=== PATIENT | female | born 1970 | race Caucasian/White ===

== ENCOUNTER 2025-04-29 04:37 | Emergency (ER) | payer BC, SELFPAY ==
--- OUTSIDE RECORDS SUMMARY | 2020-06-02 04:15 | XMS_ITS | Continuity of Care Document ---
Author Organization [facility] Address [address] [place] [address] Phone Care Team Providers Care Classroom Paraprofessional Name Role Phone Pasha CARPIO Raudel Unavailable Unavailable Procedures Procedure Date Moderna COVID Vaccine Admin Dose 2 Moderna COVID-19 Vaccine Moderna COVID Vaccine Admin Dose 2 Moderna COVID-19 Vaccine Moderna COVID Vaccine Admin Dose 1 Moderna COVID-19 Vaccine Advance Directives Directive Yes / No Effective Date File Name No Information Encounters Encounter Description Practice Location Reason(s) For Visit Diagnoses Date Provider Providers Copied on Encounter [facility], [address] [place], [place], [id number], tel:[phone] COVID ECHD No Information Dinorahfauzia Raudel. [address] [place], [place], [id number], . tel:[phone] [facility], [address] [place], [place], [id number], tel:[phone] COVID ECHD No Information Visci DO Starks. [address] [place], [place], [id number], [place]. tel:[phone] [facility], [address] [place] [address], [id number], tel:[phone] COVID ECHD Encounter for screening for other viral diseases Pasha HUSTON Raudel. [address] [place], [place], [id number], [place]. tel:[phone] Family History Family Member Type Diagnosis Age At Onset No Information Immunizations Vaccine Date Status Comments Moderna COVID administered Source: New Im munization Record Moderna COVID administered Source: New Im munization Record Payers Payer name Insurance type Covered alliance party ID Authoriza tiani(s) [place] [employer] [id number] [employer] [employer] [id number] [place] [employer] [id number] Social History Type Description Quantity Date Captured Comments Alcohol Use Details Unknown Caffeine Use Details Unknown Tobacco Use Status No Information Smoking Status No Information Sex Female Sexual Orientation Straight or heterosexual Gender Identity Female Chief Complaint And Reason For Visit No Information Reason For Referral Reason For Referral No Information History Of Present Illness Encounter Date Complaint History Of Prese nt Illness No Information Functional Status Date Functional Assessmen t No Information Instructions Date Instruction Additional Infor mation No Information Assessments Type Assessment Date No Information Patient Care Teams Name Effective Dates (start - stop) Status Members No Information
[2025-04-29 04:42] VITALS: BP 157/91; PULSE 107; TEMP 37.4; O2SAT 97; BMI 29.6
--- NOTE | 2025-04-29 05:07 | ED_ITS ---
HPI - URI/Sore Throat General Chief Complaint: Upper Respiratory Infection Stated Complaint: FEVER, HEADACHE Time Seen by Provider: 04/29/25 04:51 Source: patient Limitations: no limitations History of Present Illness HPI Narrative: This 54-year-old female presents for evaluation of 3 days of cough, headache, fevers, chills, body aches, nasal congestion. Symptoms started 3 days ago with a sore throat then a dry cough and a headache. She has taken ibuprofen and a Fioricet but does not have any relief of her headache. She does not have any neck pain or stiffness. She does not have any GI symptoms. She denies any chest pain or shortness of breath. Related Data Allergies Allergy/AdvReac Type Severity Reaction Status Date / Time latex Allergy Intermediate Hives Verified 04/29/25 04:44 Review of Systems ROS Status of ROS 10 or more systems reviewed and unremark able except as noted in history and below PFSH PFSH Social History Little interest or pleasure in doing things: not at all Feeling down, depressed, or hopeless: not at all Exam Narrative Exam Narrative: Vital signs and Nursing Notes reviewed: She has a low-grade fever, is tachycardic with a pulse of 107, blood pressure is mildly elevated 157/91, she is not hypoxic with pulse ox 97% on room air General: Awake, alert, oriented, nontoxic but mildly ill-appearing adult female, no respiratory distress HEENT: Normocephalic atraumatic, mucous membranes are moist and pink, eyes are clear, normal conjunctiva, vision is grossly intact, posterior pharynx is normal in appearance. Neck: Supple, no meningeal signs Chest: Lungs are clear to auscultation with good air entry, there is no wheezing rhonchi or rales appreciated no accessory muscle use, patient is speaking in complete sentences-no chest wall tenderness to palpation CVS: Regular rate and rhythm S1-S2 tachycardic triage with a pulse of 107, no murmurs rubs or gallops, pulses are brisk and equal bilaterally Extremities: Moving all extremities, no lower extremity tenderness or swelling noted, negative Homans' sign, pulses are brisk and equal bilaterally Skin: Normal in appearance without rash,pallor, petechiae or purpura Neuro: No focal deficits Constitutional Vital Signs, click to edit/add: Last Vital Signs Temp 99.4 F 04/29/25 04:42 Pulse 107 H 04/29/25 04:42 Resp 18 04/29/25 04:42 BP 157/91 H 04/29/25 04:42 Pulse Ox 97 04/29/25 04:42 O2 Del Method Room Air 04/29/25 04:42 Course Vital Signs Vital signs: Vital Signs Temperature 99.4 F 04/29/25 04:42 Pulse Rate 107 H 04/29/25 04:42 Respiratory Rate 18 04/29/25 04:42 Blood Pressure 157/91 H 04/29/25 04:42 Pulse Oximetry 97 04/29/25 04:42 Oxygen Delivery Method Room Air 04/29/25 04:42 Temperature 99.4 F 04/29/25 04:42 Pulse Rate 107 H 04/29/25 04:42 Respiratory Rate 18 04/29/25 04:42 Blood Pressure 157/91 H 04/29/25 04:42 Pulse Oximetry 97 04/29/25 04:42 Oxygen Delivery Method Room Air 04/29/25 04:42 MDM - URI/Sore Throat MDM Narrative Medical decision making narrative: This 54-year-old female, non-smoker presents for evaluation of 3 days of sore throat, cough, congestion, headache and bodyaches. She states the headache is the worst part. She took ibuprofen and a Fioricet before coming to the em ergency department. She is not having any chest pain or shortness of breath. She does have a low-grade fever and is mildly tachycardic. Her lungs are clear, posterior pharynx is normal. She was given a dose of [place] and Zofran in the emergency department for her headache. She is positive for influenza A, negative for influenza B and COVID-19. She will be discharged home with 2 [place] to take as needed over the course of the next 24 hours and a note for work. Lab Data Attestation: I reviewed the patient's lab results. Labs: Lab Results 04/29/25 Range/Units 04:45 Influenza Type A Ag Positive A Influenza Type B Ag Negative SARS-CoV-2 Ag (CV2AG) Negative (NEGATIVE) Discharge Plan Discharge Chief Complaint: Upper Respiratory Infection Clinical Impression: Influenza Patient Disposition: Home, Self-Care Time of Disposition Decision: 05:22 Condition: Good Print Language: Albanian Instructions: Influenza (ED) Referrals: Malik Capellan MD [Primary Care Provider, Cardiology] - 1 week
[2025-04-29] MEDS: HYDROCODONE/ACET 5-325 MG TABLET 1 TAB PO (05:08)
[2025-04-29 05:09] LABS: SARS-CoV-2 Ag NEGATIVE (NEGATIVE)
[2025-04-29] MEDS: ONDANSETRON 4 MG RAPDIS TABLET SL (05:09)
[2025-04-29] MEDS: HYDROCODONE/ACET 5-325 MG TABLET 2 TAB PO (05:35)
--- OUTSIDE RECORDS SUMMARY | 2025-04-29 05:40 | XMS_ITS | Clinical Summary ---
Author Organization [facility] Address [address] [place] [address] Care Team Providers Care Malt House Supervisor Name Role Phone Octavio Bang MD Unavailable [phone] Octavio Bang MD Primary Care Provider [phone] Allergies Active AllergyReactionsCriticalityNoted DateCommentsFish Protein-Containing Drug Hqhaelaz51/09/2023 Other Reaction(s): hives Latex12/13/2022 Other Reaction(s): Hives Medications MedicationSigDispense QuantityRefillsLast FilledStart DateEnd DateStatus aspirin 81 MG EC tablet Take 81 mg by mouth in the morning.08/15/2022ctive atorvastatin (Lipitor) 80 MG tablet Take 80 mg by mouth in the morning.08/14/2022ctive dilTIAZem CD (Cardizem CD) 120 MG 24 hr capsule Take 120 mg by mouth in the morning.12/10/2022ctive lisinopril 2.5 MG tablet Take 2.5 mg by mouth in the morning.12/08/2022ctive nitroglycerin (Nitrostat) 0.[address] 0.4 mg under the tongue every 5 (five) minutes if needed.08/30/2022ctive DULoxetine (Cymbalta) [address] capsule Indications:Adjustment disorder with anxious mood,AnxietyNote dose adjustment and take only 1 (30 mg ) capsule daily in AM. 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 zoooizpd17/09/2023H/O right coronary artery stent znuvwxqxx52/09/2023Internal derangement of right knee12/13/2022Non morbid obesity due to excess calories 12/13/2022Non-seasonal allergic cpxcmezz21/09/2023rimary osteoarthritis of both knees12/13/2022Thyroid emtnzd9012/13/2022 Immunizations ImmunizationAdministration DatesNext DueInfluenza, High Dose Seasonal, Preservative Free02/28/2017Influenza, injectable, quadrivalent, preservative free03/07/2019,02/28/2017,03/21/2016 Family History Medical HistoryRelationNameCommentsMental illnessDaughterQuinn springCancer FatherRon snyderDiabetesFatherRon snyderHypertensionFatherRon snyderProstate cancerFatherRon snyderArthritisMotherJean snyderAsthmaMotherJean snyderDementia MotherJean snyderHeart diseaseMotherJean snyderPacemakerMotherJean snyderStroke SiblingAccidental deathSister 1Leigh annStrokeSister 2Patty phillipsMental illnessSon 1Grant springBreast cancerNeg HxColon cancerNeg HxOvarian cancerNeg HxRelationNameStatusCommentsDaughterQuinn springAliveFatherRon snyderDeceased Maternal GrandfatherDeceasedMaternal GrandmotherDeceasedMotherJean chavarria DeceasedPaternal GrandfatherDeceasedPaternal GrandmotherDeceasedSiblingSister 1 Norma annSister 2Patty phillipsSon 1Grant springAliveSon 2Alive Social History Tobacco UseTypesPacks/DayYears UsedDateSmoking Tobacco: NeverSmokeless Tobacco: Never Tobacco Cessation:Counseling Given: Yes Alcohol UseStandard Drinks/WeekCommentsYes1 (1 standard drink = 0.6 oz pure alcohol)Caffeine intake: 1-2 cups per day coffee, soda/[id number] Health Literacy AnswerDate RecordedHow often do you need to have someone help you when you read instructions, pamphlets, or other written material from your doctor or pharmacy? Never06/18/2024Humiliation, Afraid, Rape, and Kick questionnaireAnswerDate RecordedWithin the last year, have you been afraid of your partner or ex-partner?No12/21/2022Within the last year, have you been humiliated or emotionally abused in other ways by your partner or ex-partner?No12/21/2022 Within the last year, have you been kicked, hit, slapped, or otherwise physically hurt by your partner or ex-partner?No12/21/2022Within the last year, have you been raped or forced to have any kind of sexual activity by your part ner or ex-partner?No12/21/2022Social Connection and Isolation PanelAnswerDate RecordedIn a typical week, how many times do you talk on the phone with family, friends, or neighbors?More than three times a week06/18/2024How often do you get together with friends or relatives?Twice a week06/18/2024How often do you attend christian or anglican services?Patient sezjsryy12/12/2025Do you belong to any clubs or organizations such as christian groups, unions, fraternal or athletic tommy ups, or school groups?Patient uixfcsqj94/12/2025How often do you attend meetings of the clubs or organizations you belong to?Patient ndkrezaq42/12/2025re you , , , , never , or living with a partner? Ujsbwim5106/18/2024UDIT-CAnswerDate RecordedQ1: How often do you have a drink containing alcohol?2-4 times a month06/18/2024Q2: How many drinks containing alcohol do you have on a typical day when you are drinking?1 or Q3: How often do you have six or more drinks on one occasion?Never06/18/2024Overall Financial Resource Strain (CARDIA)AnswerDate RecordedHow hard is it for you to pay for the very basics like food, housing, medical care, and heating?Not hard at all06/18/2024PHQ-2AnswerDate RecordedPatient Health Questionnaire-2 Score0 12/22/2024[facility] [place] [facility] - Occupational Stress QuestionnaireAnswerDate RecordedDo you feel stress - tense, restless, nervous, or anxious, or unable to sleep at night because yourmind is troubled all the time - these days?To some fwmwwo0106/18/2024Exercise Vital SignAnswerDate Recorded On average, how many days per week do you engage in moderate to strenuous exercise (like a brisk walk)?3 days06/18/2024On average, how many minutes do you engage in exercise at this level?20 min06/18/2024Hunger Vital SignAnswerDate RecordedWithin the past 12 months, you worried that your food would run out before you got the money to buymore.Never true06/18/2024Within the past 12 months, the food you bought just didn't last and you didn't have money to get more.Never true06/18/2024PRAPARE - TransportationAnswerDate RecordedIn the past 12 months, has lack of transportation kept you from medical appointments or from getting medications?No06/18/2024In the past 12 months, has lack of transportation kept you from meetings, work, or from getting things needed for daily living?No06/18/2024Housing Stability Vital SignAnswerDate RecordedIn the last 12 months, was there a time when you were not able to pay the mortgage or rent on time?No12/21/2022In the last 12 months, how many places have you lived?1 12/21/2022In the last 12 months, was there a time when you did not have a steady place to sleep or slept in ashelter (including now)?12/21/2022Housing Stability Vital SignAnswerDate RecordedIn the last 12 months, was there a time when you were not able to pay the mortgage or rent on time?No06/18/2024In the past 12 months, how many times have you moved where you were living? At any time in the past 12 months, were you homeless or living in a detention (including now)?No06/18/2024CommentsNoSex and Gender InformationValue Date RecordedSex Assigned at BirthNot on fileLegal PanYlxbiy37/15/2023 7:07 PM EDTGender IdentityNot on fileSexual OrientationNot on fileOccupationIndustryJob Start DateJob End DateNurseNot on fileNot on fileNot on file Last Filed Vital Signs Vital SignReadingTime TakenCommentsBlood Bcwoohhm444/7601/10/2024 4:04 PM EST Rndwa1360/18/2025 10:08 AM EDTTemperature--Respiratory Rate--Oxygen Saturation 97%12/22/2024 10:08 AM EDTInhaled Oxygen Concentration--Cazfqt21.5 kg (204 lb) 12/22/2024 10:08 AM SBFBflruo832.5 cm (5' 7.5 )12/22/2024 10:08 AM EDTBody Mass Index31.4808 10:08 AM EDT Plan of Treatment DateTypeDepartmentCare Team (Latest Contact Info)Mslvpttdznk73/11/2026 4:30 PM ESTOffice Visit [facility] [address] [facility] [address] [place] [address] Octavio Bang MD [address] [facility] [address] [place] [address] Health MaintenanceDue DateLast DoneCommentsCT Ymuummmmsztr87/23/1971FIT-DNA 1970FIT1970FOBT1970 8187Zavzvmwcfgsit07/23/1971Pneumococcal Vaccine: Pediatrics (0 to 5 Years) and At-Risk Patients (6 to 64 Years) (1 of 2 - PCV)1989Pap Smear07/28/1991Cervical Cancer Iakneefzf20/23/2001HPV/Cotest 07/27/20008650Xluralark05/23/1368Ygluhdtgysi76, 11/02/2021 Colorectal Cancer Vekymhbyp28/29/2032Influenza YwepvqdOxmjjjjwi25/28/2025, 03/07/2019, 02/28/2017, Additional history exists Procedures Procedure NamePriorityDate/TimeAssociated DiagnosisCommentsCOLONOSCOPYRoutine 11/02/2021 12:00 PM EDT Encounter for screening for malignant neoplasm of colon from Last 3 Months or Most Recently Relevant to Health Maintenance Results * Colonoscopy (11/02/2021 12:00 PM EDT)Anatomical RegionLateralityModality EndoscopySpecimen (Source)Anatomical Location / LateralityCollection Method / VolumeCollection TimeReceived Time11/02/2021 12:00 PM EDT Narrative 11/02/2021 12:00 PM EDT PERFORMED AT [facility] LOCATION:[id number] Procedure Note CONVERSION, GENERIC - 09/20/2022 PERFORMED AT [facility] LOCATION:[id number] Authorizing ProviderResult TypeResult StatusFredric Chandra Crawley DOENDOSCOPY PROCEDURE ORDERABLESFinal Result from Last 3 Months or Most Recently Relevant to Health Maintenance Insurance Care Teams Team MemberRelationshipSpecialtyStart DateEnd Date Octavio Bang MD [address] [place] [id number] PCP - [facility]08/05/20 Octavio Bang MD [address] [place] [id number] PCP - [facility]09/12/22
--- OUTSIDE RECORDS SUMMARY | 2025-04-29 05:40 | XMS_ITS | Clinical Summary ---
Author Organization [facility] Address [address] [place] [address] Care Team Providers Care Correctional Sergeant Name Role Phone Octavio Bang MD Primary Care Provider [phone] Allergies Active AllergyReactionsCriticalityNoted DateCommentsFish Containing Products Hives,TobjpyezAafm06/26/2023 WHITEFISH ONLY OazvqVovclRikvzq82/08/2023 Medications MedicationSigDispense QuantityRefillsLast FilledStart DateEnd DateStatus ALPRAZolam (Xanax) 0.25 mg tablet Take 0.25 mg by mouth if needed in the morning, at noon, and at bedtime for anxiety.Active cedoicbhfa-wepxqjbgavvxy-ikng 50-325-40 mg tablet Take 1 tablet by mouth every 4 (four) hours if needed for headaches.Active diclofenac sodium (Voltaren XR) 100 mg 24 hr tablet Take 100 mg by mouth if needed each day. Do not crush, chew, or split.Active DULoxetine (Cymbalta) [address] capsule 30 mg 1 (one) time each day.08/13/2022ctive multivit with minerals/lutein (MULTIVITAMIN 50 PLUS ORAL) MultivitaminActive nitroglycerin (Nitrostat) 0.4 mg SL tablet Indications:Primary hypertension,NSTEMI (non-ST elevated myocardial infarction) (CMS/HCC),Coronary artery vasospasmPlace 1 tablet (0.4 mg) under the tongue every 5 (five) minutes if needed for chest pain. May repeat every 5 minutes for up to 3 doses. 25 tablet 5Active lisinopril 2.5 mg tablet Indications:NSTEMI (non-ST elevated myocardial infarction) (CMS/HCC)Take 1 tablet (2.5 mg) by mouth in the morning. 90 tablet tive atorvastatin (Lipitor) 80 mg tablet Indications:NSTEMI (non-ST elevated myocardial infarction) (CMS/HCC)Take 1 tablet (80 mg) by mouth at bedtime. 90 tablet 5Active aspirin 81 mg EC tablet Indications:NSTEMI (non-ST elevated myocardial infarction) (CMS/HCC)Take 1 tablet (81 mg) by mouth in the morning. 90 tablet 506Active dilTIAZem CD (Cardizem CD) 120 mg 24 hr capsule Indications:Coronary artery vasospasmTake 1 capsule (120 mg) by mouth in the morning. 90 capsule tive Active Problems ProblemNoted DateDiagnosed DateEpisodic gapeublk19/22/2024Impaired skin mwaerbcbv08/18/2024 Overview (11/22/2023): Problem added on documentation of skin impairments. Controlled substance agreement tezjtr0606/20/2023H/O right coronary artery stent srntytwfi95/09/2023Internal derangement of right knee12/13/2022Non-seasonal allergic deklwuvz19/09/2023rimary osteoarthritis of both knees12/13/2022Mixed agzfdjtxqnoddx49/26/2023 Assessment & Plan (08/30/2022 2:13 PM EDT): Continue lipitor 80 mg daily and repeat hepatic function and lipid level in 2-3 months Call office for any concerns, muscle aches/ joint discomfort Coronary artery wmnzxijxb03/10/2023 Assessment & Plan (08/30/2022 2:11 PM EDT): Continue diltiazem as prescribed and script sent for NTG SL prn for chest pain and she voiced understanding of instructions. 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 Angina pectoris, pdoulgcb01/08/2023 Overview (08/14/2022): Added automatically from request for surgery [id number] Osteoarthritis of knee04/16/2019Adjustment disorder with anxious mood09/12/2017 Thyroid cdtdkq2409/27/20165431Exbdolx70/22/2017 Social History Tobacco UseTypesPacks/DayYears UsedDateSmoking Tobacco: NeverSmokeless Tobacco: Never Tobacco Cessation:Counseling Given: Not Answered Humiliation, Afraid, Rape, and Kick questionnaireAnswerDate RecordedWithin the last year, have you been afraid of your partner or ex-partner?No08/12/2022 Emotionally AbusedNot on file08/12/2022hysically AbusedNot on file08/12/2022 Sexually AbusedNot on file08/12/2022Overall Financial Resource Strain (CARDIA) AnswerDate RecordedHow hard is it for you to pay for the very basics like food, housing, medical care, and heating?Not hard at all08/12/2022UT Safety & EnvironmentAnswerDate RecordedFear of Current or Ex-PartnerNot on file08/14/2023 Emotionally AbusedNot on file08/14/2023hysically AbusedNot on file08/14/2023 Sexually AbusedNot on file08/14/2023hysically or Sexually AbusedNot on file 08/14/2023TransportationAnswerDate RecordedIn the past 12 months, has lack of transportation kept you from medical appointments or from getting medications?No 08/12/2022Lack of Transportation (Non-Medical)Not on file08/12/2022Housing Stability Vital SignAnswerDate RecordedUnable to Pay for Housing in the Last YearNot on file08/12/2022Number of Places Lived in the Last YearNot on file 08/12/2022In the last 12 months, was there a time when you did not have a steady place to sleep or slept in ashelter (including now)?No08/12/2022Hunger Vital SignAnswerDate RecordedWithin the past 12 months, you worried that your food would run out before you got the money to buymore.Never true08/12/2022Ran Out of Food in the Last YearNot on file3CommentsUnknownSex and Gender InformationValueDate RecordedSex Assigned at ItzhiOmxyur87/09/2023 11:14 AM EDT Legal GvpZharbh16/08/2023 1:57 PM EDTGender DllvmneoPkjntc05/09/2023 11:14 AM EDTSexual OrientationHeterosexual or Wcevfbhi24/09/2023 11:14 AM EDT Last Filed Vital Signs Vital SignReadingTime TakenCommentsBlood Fhncoqot724/7311/04/2024 3:27 PM EDT Thhjt089811/04/2024 3:27 PM GMBBofeipwnhgt26.1 ??C (97 ??F)08/14/2022 11:48 AM EDT Respiratory Grsq769311/22/2023 9:07 AM EDTOxygen Obkiskdgde70%11/04/2024 3:27 PM EDTInhaled Oxygen Concentration--Dftsrk62.2 kg (212 lb)11/04/2024 3:27 PM EDT Zrmrsv399.7 cm (5' 8 )11/04/2024 3:27 PM EDTBody Mass Index32.2307 3:27 PM EDT Plan of Treatment Health MaintenanceDue DateLast DoneCommentsCT Nfoxlchyszoi79/23/1971FIT-DNA 1970FIT1970FOBT1970 9001Eoccfgkyjltxj28/23/1971Depression Screening 1982Hepatitis B Vaccines (1 of 3 - 19+ 3-dose series)1989 Pneumococcal Vaccine: Pediatrics (0 to 5 Years) and At-Risk Patients (6 to 64 Years) (1 of 2 - PCV)1989Pap Smear07/28/1991Adult Ixlnvmv4207/27/1992 Cervical Cancer Aupoyhwfv19/23/2001HPV/Jcjiyf0607/27/20002058Rvehxotmu08/23/2011Zoster Vaccines (1 of 2)1COVID-19 Vaccine (3 - 2024- season)2025 06/02/2020, 05/05/2020Influenza Vaccine (#1), 02/28/2017, 03/21/20166191Mavpdfkmdsp15/29/203206/2Colorectal Cancer Fqmouogbk70/29/2032 HIB VaccinesAged OutNo longer eligible based on patient's age to complete this topicHPV VaccinesAged OutNo longer eligible based on patient's age to complete this topicIPV VaccinesAged OutNo longer eligible based on patient's age to complete this topicMeningococcal B VaccineAged OutNo longer eligible based on patient's age to complete this topicMeningococcal VaccineAged OutNo longer eligible based on patient's age to complete this topicRotavirus VaccinesAged Out No longer eligible based on patient's age to complete this topic Insurance Advance Directives * Full Code (Latest Code Status on File) Date ActivatedDate InactivatedComments08/12/2022 10:07 PM08/14/2022 8:45 PM Care Teams Team MemberRelationshipSpecialtyStart DateEnd Date Octavio Bang MD [facility]11/06/22
== END 2025-04-29 05:38 | disposition home or self-care (01) ==
LOC: ER 05:37
PROVIDERS: Emergency Provider Emergency Medicine; PCP Family Medicine
DX: J10.1 Influenza due to other identified influenza virus with other respiratory manifestations (principal); R50.9 Fever, unspecified
CPT/HCPCS: 87804; 87811; 99283; Q0162